=== PATIENT | female | born 1980 | race Caucasian/White ===

== ENCOUNTER → 2017-04-06 | Outpatient (CLI) | payer BC ==
[2017-04-06 12:48] LABS: BASOPHILS % (AUTO) 0.4 % (0.2-1.0); EOSINOPHILS # (AUTO) 0.1 x10^3/uL (0.0-0.2); HEMATOCRIT 41.3 % (36.0-47.0); HEMOGLOBIN 13.7 g/dL (12.0-16.0); LYMPHOCYTES # (AUTO) 2.8 X10^3/uL (1.3-2.9); LYMPHOCYTES % (AUTO) 39.2 % (21.0-51.0); MEAN CORPUSCULAR HEMOGLOBIN 27.2 pg (27.0-34.0); MEAN CORPUSCULAR HGB CONC 33.2 g/dL (33.0-35.0); MEAN CORPUSCULAR VOLUME 81.8 fL (80.0-100.0); MEAN PLATELET VOLUME 9.2 fL (7.4-11.0); MONOCYTES # (AUTO) 0.4 x10^3/uL (0.3-0.8); MONOCYTES % (AUTO) 5.5 % (0.0-13.0); NEUTROPHILS # (AUTO) 3.9 x10^3/uL (2.2-4.8); NEUTROPHILS % (AUTO) 53.9 % (42.0-75.0); PLATELET COUNT 277 X10^3/uL (150.0-450.0); RED BLOOD COUNT 5.05 X10^6/uL (3.5-5.4); RED CELL DISTRIBUTION WIDTH 13.1 % (11.6-16.5); WHITE BLOOD COUNT 7.2 X10^3/uL (3.6-10.0)
[2017-04-06 13:11] LABS: ALANINE AMINOTRANSFERASE 19 Units/L (12-78); ALBUMIN 3.6 g/dL (3.4-5.0); ALKALINE PHOSPHATASE 124 Units/L (46-116); ASPARTATE AMINO TRANSFERASE 15 Units/L (15-37); BLOOD UREA NITROGEN 9 mg/dL (7-18); CALCIUM 8.6 mg/dL (8.5-10.1); CARBON DIOXIDE 25.3 mmol/L (21-32); CHLORIDE 106 mmol/L (98-107); CHOL/HDL RATIO 3.8 (0.0-5.0); CHOLESTEROL 173 mg/dL (0-200); CREATININE 0.71 mg/dL (0.55-1.02); GLUCOSE 95 mg/dL (65-99); HDL CHOLESTEROL 45 mg/dL (40-60); SODIUM 141 mmol/L (136-145); TOTAL PROTEIN 7.6 g/dL (6.4-8.2); TRIGLYCERIDES 57 mg/dL (0-150); eGFR BLACK RACES > 60 (>60); eGFR NON BLACK RACES > 60 (>60)
== END ==
LOC: LAB 11:18
PROVIDERS: ATTEND Internal Medicine
DX: Z00.00 Encounter for general adult medical examination without abnormal findings (principal); I10 Essential (primary) hypertension; E55.9 Vitamin D deficiency, unspecified
CPT/HCPCS: 36415; 80053; 80061; 82306; 84443; 85025; 86140

== ENCOUNTER 2023-08-23 01:18 | Observation (INO) ==
[2023-08-23 01:40] VITALS: BMI 26.9
[2023-08-23 02:01] LABS: BASOPHILS # (AUTO) 0.1 X10^3/uL (0.0-0.1); BASOPHILS % (AUTO) 0.5 % (0.2-1.0); EOSINOPHILS % (AUTO) 0.2 % (0.9-2.9); HEMATOCRIT 39.5 % (36.0-47.0); HEMOGLOBIN 13.6 g/dL (12.0-16.0); LYMPHOCYTES # (AUTO) 1.8 X10^3/uL (1.3-2.9); LYMPHOCYTES % (AUTO) 15.6 % (21.0-51.0); MEAN CORPUSCULAR HGB CONC 34.4 g/dL (33.0-35.0); MEAN CORPUSCULAR VOLUME 84.2 fL (80.0-100.0); MEAN PLATELET VOLUME 8.5 fL (7.4-11.0); MONOCYTES # (AUTO) 0.6 x10^3/uL (0.3-0.8); MONOCYTES % (AUTO) 5.1 % (0.0-13.0); NEUTROPHILS % (AUTO) 78.6 % (42.0-75.0); PLATELET COUNT 254 X10^3/uL (150.0-450.0); RED BLOOD COUNT 4.69 X10^6/uL (3.5-5.4); RED CELL DISTRIBUTION WIDTH 12.8 % (11.6-16.5); WHITE BLOOD COUNT 11.4 X10^3/uL (3.6-10.0)
[2023-08-23 02:12] LABS: ALANINE AMINOTRANSFERASE 26 Units/L (12-78); ALBUMIN 3.7 g/dL (3.4-5.0); ALKALINE PHOSPHATASE 83 Units/L (46-116); AMYLASE 25 Units/L (25-115); ASPARTATE AMINO TRANSFERASE 32 Units/L (15-37); BLOOD UREA NITROGEN 8 mg/dL (7-18); CALCIUM 8.7 mg/dL (8.5-10.1); CARBON DIOXIDE 29.1 mmol/L (21-32); CHLORIDE 102 mmol/L (98-107); CREATININE 0.82 mg/dL (0.55-1.02); GLUCOSE 105 mg/dL (65-99); LIPASE 98 Units/L (73-393); SODIUM 136 mmol/L (136-145); TOTAL PROTEIN 7.5 g/dL (6.4-8.2); eGFR NON BLACK RACES > 60 (>60)
[2023-08-23 02:29] LABS: BILIRUBIN,URINE NEGATIVE (NEGATIVE); BLOOD/HEMOGLOBIN,URINE NEGATIVE (NEGATIVE); GLUCOSE, URINE NEGATIVE (NEGATIVE); KETONES,URINE 1+ (NEGATIVE); LEUKOCYTE ESTERASE ,URINE 1+ (NEGATIVE); NITRITES,URINE NEGATIVE (NEGATIVE); PROTEIN,URINE NEGATIVE (NEGATIVE); UROBILINOGEN,URINE NORMAL (NORMAL)
[2023-08-23 02:41] LABS: APPEARANCE,URINE HAZY (CLEAR); COLOR,URINE DARK YELLOW (YELLOW)
[2023-08-23 02:42] LABS: BACTERIA,URINE TRACE /HPF (NEGATIVE); RBC,URINE 0-2 /HPF (0-3); SQUAMOUS EPITHELIAL CELL,UR RARE /HPF (NEGATIVE)
[2023-08-23] MEDS ORDERED: NS 100 ML IV 100 ML ONE ×3 (03:02→12:25)
[2023-08-23] MEDS ORDERED: OMNIPAQUE 350 mg/mL 100 mL BTL 100 ML ONE (03:02)
--- NOTE | 2023-08-23 04:22 | CT ---
PROCEDURE: CT Abdomen and Pelvis with Contrast .HISTORY: Abdomen pain.TECHNIQUE: Axial images were performed through the abdomen and pelvis with the administration of IV contrast with multiplanar reformations . Oral contrast was not administered. Dose reduction techniques including Automated Exposure Control (AEC) and adjustment of mA and kV were utilized .COMPARISON: None .TECHNICAL QUALITY: Satisfactory .FINDINGS:Clear lung bases.Spleen upper limits of normal at 13 cm. Liver, adrenals, pancreas show no abnormality.Kidneys show no masses or obstruction.Prominent gallbladder wall could represent acute cholecystitis. No calcified stones and normal biliary tree.No ascites or pneumoperitoneum.Normal aorta.No lymphadenopathy.No bowel obstruction or inflammation and normal appendix.Pelvis shows no masses or free fluid in normal urinary bladder. Previous hysterectomy.No acute bony abnormality.IMPRESSION:1. Possible acute cholecystitis and ultrasound recommended.2. Spleen upper limits of normal.3. No other abnormality identified.Electronically signed by: Xavier Villegas (Aug 23, 2023 04:21:21)
[2023-08-23] MEDS ORDERED: ZOFRAN INJ 4 MG VIAL IVP ONE (04:30)
[2023-08-23] MEDS ORDERED: MORPHINE SULFATE INJ 4 MG IVP ONE (04:30)
--- NOTE | 2023-08-23 04:38 | ED.ABDFE ---
HPI Time Seen Time Seen by Provider: 08/23/23 02:03 PCP Primary Care Physician: Bry Álvarez/Jennifer Complaint Chief Complaint:: pt amb to triage with NAD noted, c/o abd pain that feels like indigestion and radiates around right side to back, reports this has happened 2 times before and eased after "making herself vomit" Self Treatment fo Chief Complaint: Flexeril COVID-19 Coronavirus risk:travel/contact w/high risk person: No Has patient experienced Coronavirus symptoms: No Reviewed Nurses Notes Review: Yes Source History Provided: Patient and Significant Other Mode of arrival Mode of Arrival: Ambulatory Timing Onset of Chief Complaint: 08/22/23 Came on: Gradually Duration Since Onset: Intermittent Location Location: RUQ Severity Severity: Moderate Quality Quality: Cramping and Sharp Context History of: None Modifying factors Worsening Factors: Food Associated signs and symptoms Associated Signs and Symptoms: Nausea PMH PMH Past Medical History: Yes Past Medical History: Hypertension Past Surgical History: Yes Surgical History: Hysterectomy Past Surgical History Comment: partial Family History History of Family Medical Conditions: No Social History Does patient currently use any type of tobacco product: No Have you used tobacco products in the last 12 months: No Type of Tobacco Use: None Alcohol Use: None Do you use any recreational Drugs:: No Lives With: Spouse Lives Where: Home Travel Risk Coronavirus risk:travel/contact w/high risk person: No Has patient experienced Coronavirus symptoms: No Infectious screening Have you traveled outside the country in the last 6 months?: No Isolation: Standard ROS Review of Systems Gastrointestinal/Abdominal: See HPI and Abdominal Pain PE Vital Signs Vitals: Vital Signs Temperature 97.8 F Pulse Rate 88 Respiratory Rate 20 Blood Pressure 139/89 O2 Sat by Pulse Oximetry 100 General Limitations: No Limitations General Appearance: Alert and In No Apparent Distress Head Head Exam: Normal Inspection, Atraumatic and Normocephalic Eyes Eye exam: Normal Appearance, PERRL and EOMI ENT ENT Exam: Normal Exam Neck Neck Exam: Normal Inspection Chest Chest Inspection: Normal Inspection Respiratory Respiratory Exam: Normal Lung Sounds Bilat Cardiovascular Cardiovascular Exam: Regular Rate Abdominal Exam Abdominal Exam: Normal Inspection Rectal Rectal Exam: Deferred Back Back Exam: Normal Inspection Extremeties Extremities Exam: Normal Inspection Neurologic Neurological Exam: Alert, Oriented X3 and CN II-XII Intact Psychiatric Psychiatric Exam: Normal Affect and Normal Mood Skin Skin Exam: Warm, Dry and Intact COURSE Treatment Treatment: CT, Labs, Zosyn, Morphine Reevaluation 1st: Improved ROR Labs Reviewed Laboratory Results Reviewed?: Yes 08/23/23 01:55 08/23/23 01:55 Laboratory: WBC 11.4 X10^3/uL (3.6-10.0) H 08/23/23 01:55 RBC 4.69 X10^6/uL (3.5-5.4) 08/23/23 01:55 Hgb 13.6 g/dL (12.0-16.0) 08/23/23 01:55 Hct 39.5 % (36.0-47.0) 08/23/23 01:55 MCV 84.2 fL (80.0-100.0) 08/23/23 01:55 MCH 29.0 pg (27.0-34.0) 08/23/23 01:55 MCHC 34.4 g/dL (33.0-35.0) 08/23/23 01:55 RDW 12.8 % (11.6-16.5) 08/23/23 01:55 Plt Count 254 X10^3/uL (150.0-450.0) 08/23/23 01:55 MPV 8.5 fL (7.4-11.0) 08/23/23 01:55 Neut % (Auto) 78.6 % (42.0-75.0) H 08/23/23 01:55 Lymph % (Auto) 15.6 % (21.0-51.0) L 08/23/23 01:55 [place] % (Auto) 5.1 % (0.0-13.0) 08/23/23 01:55 Eos % (Auto) 0.2 % (0.9-2.9) L 08/23/23 01:55 Baso % (Auto) 0.5 % (0.2-1.0) 08/23/23 01:55 Neut # (Auto) 9.0 x10^3/uL (2.2-4.8) H 08/23/23 01:55 Lymph # (Auto) 1.8 X10^3/uL (1.3-2.9) 08/23/23 01:55 [place] # (Auto) 0.6 x10^3/uL (0.3-0.8) 08/23/23 01:55 Eos # (Auto) 0.0 x10^3/uL (0.0-0.2) 08/23/23 01:55 Baso # (Auto) 0.1 X10^3/uL (0.0-0.1) 08/23/23 01:55 Absolute Nucleated RBC 0.0 /100WBC 08/23/23 01:55 Sodium 136 mmol/L (136-145) 08/23/23 01:55 Corrected Sodium TNP 08/23/23 01:55 Potassium 4.0 mmol/L (3.5-5.1) 08/23/23 01:55 Chloride 102 mmol/L (98-107) 08/23/23 01:55 Carbon Dioxide 29.1 mmol/L (21-32) 08/23/23 01:55 BUN 8 mg/dL (7-18) 08/23/23 01:55 Creatinine 0.82 mg/dL (0.55-1.02) 08/23/23 01:55 Est GFR (MDRD) Af Amer > 60 (>60) 08/23/23 01:55 Est GFR (MDRD) Non-Af > 60 (>60) 08/23/23 01:55 Glucose 105 mg/dL (65-99) H 08/23/23 01:55 Calcium 8.7 mg/dL (8.5-10.1) 08/23/23 01:55 Corrected Calcium TNP 08/23/23 01:55 Total Bilirubin 0.80 mg/dL (0.2-1.0) 08/23/23 01:55 AST 32 Units/L (15-37) 08/23/23 01:55 ALT 26 Units/L (12-78) 08/23/23 01:55 Alkaline Phosphatase 83 Units/L (46-116) 08/23/23 01:55 Total Protein 7.5 g/dL (6.4-8.2) 08/23/23 01:55 Albumin 3.7 g/dL (3.4-5.0) 08/23/23 01:55 Globulin 3.8 g/dL (2.5-4.5) 08/23/23 01:55 Albumin/Globulin Ratio 1.0 Ratio (1.1-2.1) L 08/23/23 01:55 Amylase 25 Units/L (25-115) 08/23/23 01:55 Lipase 98 Units/L (73-393) 08/23/23 01:55 Specimen Type Clean catch urine 08/23/23 02:15 Urine Color Dark yellow (YELLOW) 08/23/23 02:15 Urine Appearance Hazy (CLEAR) 08/23/23 02:15 Urine pH 8.0 (5.0 - 8.0) 08/23/23 02:15 Ur Specific [place] 1.015 (1.000-1.030) 08/23/23 02:15 Urine Protein Negative (NEGATIVE) 08/23/23 02:15 Urine Glucose (UA) Negative (NEGATIVE) 08/23/23 02:15 Urine Ketones 1+ (NEGATIVE) 08/23/23 02:15 Urine Blood Negative (NEGATIVE) 08/23/23 02:15 Urine Nitrite Negative (NEGATIVE) 08/23/23 02:15 Urine Bilirubin Negative (NEGATIVE) 08/23/23 02:15 Urine Urobilinogen Normal (NORMAL) 08/23/23 02:15 Ur Leukocyte Esterase 1+ (NEGATIVE) 08/23/23 02:15 Urine RBC 0-2 /HPF (0-3) 08/23/23 02:15 Urine WBC 0-2 /HPF (0-5) 08/23/23 02:15 Ur Squamous Epith Cells Rare /HPF (NEGATIVE) 08/23/23 02:15 Amorphous Sediment 2+ /HPF (NEGATIVE) 08/23/23 02:15 Urine Bacteria Trace /HPF (NEGATIVE) 08/23/23 02:15 Urine Mucus Few /HPF (NEGATIVE) 08/23/23 02:15 Ur Culture Indicated? No/not indicated 08/23/23 02:15 XRAY XRAY Interpreted by: Radiologist Opioid Opioid Risk Tool Age (Yo box if 16-45): Yes Total: 1 Total Score Risk Category: Low Risk Copyright: Anshu LARA predicting aberrant behaviors Discharge Plan Diagnosis Discharge Problem: Cholecystitis Discharge Plan Patient Disposition: 09 ADMITTED INPATIENT Condition: Stable Health Concerns: Post Hospitalization: new medications and changes needed to prevent readmission or further decline. Pt educated and given instructions on all concerns. Plan of Treatment: Continue with present treatment and follow up plan. Pt is to keep follow up appointment as instructed and take medications as ordered. Orders to Discharge Patient Discharge Orders: Discharge (Routine); Ordered 08/23/23 Ordered By: Babak Rossi Follow ups/Referrals Follow ups/Referrals: NFD,None [Primary Care Provider] - 3 days
[2023-08-23] MEDS ORDERED: NS 1,000 ML IV 1,000 ML ONE ×2 (04:44→12:26)
[2023-08-23] MEDS ORDERED: ZOSYN VIAL 4.5 GRAMS IV ONE (05:00)
[2023-08-23] MEDS: ZOSYN VIAL 4.5 GRAMS 4.5 G in NS 100 ML IV 100 ML IV SCH ×4 (05:07→21:41)
[2023-08-23] MEDS ORDERED: MORPHINE SULFATE INJ 4 MG ONE (05:09)
[2023-08-23] MEDS: NS 1,000 ML IV 1,000 ML IV SCH ×3 (05:09→21:42)
[2023-08-23] MEDS ORDERED: ZOFRAN INJ 4 MG VIAL ONE ×3 (05:10→15:17)
[2023-08-23] MEDS ORDERED: HIBICLENS WASH ONE (05:34)
[2023-08-23] MEDS ORDERED: HIBICLENS WASH EXT ONE (05:42)
--- NOTE | 2023-08-23 08:03 | EKG ---
Test Reason : pre op Blood Pressure : */* mmHG Vent. Rate : 75 BPM Atrial Rate : 75 BPM P-R Int : 106 ms QRS Dur : 78 ms QT Int : 398 ms P-R-T Axes : -3 17 23 degrees QTc Int : 444 ms Sinus rhythm with short SD Otherwise normal ECG No previous ECGs available Confirmed by Enrique Esquivel ([id number]) on 08/24/2023 9:17:03 AM Referred By: Confirmed By: Enrique Esquivel
--- NOTE | 2023-08-23 08:57 | RAD ---
EXAM:AP chestHISTORY:PreopCOMPARISON:None br.br.br spaces.IMPRESSION:Normal examination.THIS IS AN ELECTRONICALLY VERIFIED FINAL [id number]/23/2023 8:54 AM - Electronically signed by Amandeep Delgadillo MD
--- NOTE | 2023-08-23 11:37 | DR.H&P ---
H&P History & Physical for Day of: H&P Date: 08/23/23 Chief Complaint Chief Complaint: Right upper quadrant abdominal pain Allergies Allergies Allergy/AdvReac Type Severity Reaction Status Date / Time No Known Allergies Allergy Verified 08/23/23 05:23 History of Present Illness History of Present Illness: Otherwise healthy 42 year old female with multiple episodes of right upper quadrant pain with meals over the last several months. Most recent episode yesterday did not resolve after time. She was evaluated in the emergency room and CT scan consistent with a thickened wall gallbladder consistent with cholecystitis. 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 Family History Family Medical History: Diabetes Mellitus and Hypertension Social History Does patient currently use any type of tobacco product: No Have you used tobacco products in the last 12 months: No Type of Tobacco Use: None Alcohol Use: None Drug Use: None Labs 08/23/23 01:55 08/23/23 01:55 Labs: Laboratory WBC 11.4 X10^3/uL (3.6-10.0) H 08/23/23 01:55 RBC 4.69 X10^6/uL (3.5-5.4) 08/23/23 01:55 Hgb 13.6 g/dL (12.0-16.0) 08/23/23 01:55 Hct 39.5 % (36.0-47.0) 08/23/23 01:55 MCV 84.2 fL (80.0-100.0) 08/23/23 01:55 MCH 29.0 pg (27.0-34.0) 08/23/23 01:55 MCHC 34.4 g/dL (33.0-35.0) 08/23/23 01:55 RDW 12.8 % (11.6-16.5) 08/23/23 01:55 Plt Count 254 X10^3/uL (150.0-450.0) 08/23/23 01:55 MPV 8.5 fL (7.4-11.0) 08/23/23 01:55 Neut % (Auto) 78.6 % (42.0-75.0) H 08/23/23 01:55 Lymph % (Auto) 15.6 % (21.0-51.0) L 08/23/23 01:55 [place] % (Auto) 5.1 % (0.0-13.0) 08/23/23 01:55 Eos % (Auto) 0.2 % (0.9-2.9) L 08/23/23 01:55 Baso % (Auto) 0.5 % (0.2-1.0) 08/23/23 01:55 Neut # (Auto) 9.0 x10^3/uL (2.2-4.8) H 08/23/23 01:55 Lymph # (Auto) 1.8 X10^3/uL (1.3-2.9) 08/23/23 01:55 [place] # (Auto) 0.6 x10^3/uL (0.3-0.8) 08/23/23 01:55 Eos # (Auto) 0.0 x10^3/uL (0.0-0.2) 08/23/23 01:55 Baso # (Auto) 0.1 X10^3/uL (0.0-0.1) 08/23/23 01:55 Absolute Nucleated RBC 0.0 /100WBC 08/23/23 01:55 Sodium 136 mmol/L (136-145) 08/23/23 01:55 Corrected Sodium TNP 08/23/23 01:55 Potassium 4.0 mmol/L (3.5-5.1) 08/23/23 01:55 Chloride 102 mmol/L (98-107) 08/23/23 01:55 Carbon Dioxide 29.1 mmol/L (21-32) 08/23/23 01:55 BUN 8 mg/dL (7-18) 08/23/23 01:55 Creatinine 0.82 mg/dL (0.55-1.02) 08/23/23 01:55 Est GFR (MDRD) Af Amer > 60 (>60) 08/23/23 01:55 Est GFR (MDRD) Non-Af > 60 (>60) 08/23/23 01:55 Glucose 105 mg/dL (65-99) H 08/23/23 01:55 Calcium 8.7 mg/dL (8.5-10.1) 08/23/23 01:55 Corrected Calcium TNP 08/23/23 01:55 Total Bilirubin 0.80 mg/dL (0.2-1.0) 08/23/23 01:55 AST 32 Units/L (15-37) 08/23/23 01:55 ALT 26 Units/L (12-78) 08/23/23 01:55 Alkaline Phosphatase 83 Units/L (46-116) 08/23/23 01:55 Total Protein 7.5 g/dL (6.4-8.2) 08/23/23 01:55 Albumin 3.7 g/dL (3.4-5.0) 08/23/23 01:55 Globulin 3.8 g/dL (2.5-4.5) 08/23/23 01:55 Albumin/Globulin Ratio 1.0 Ratio (1.1-2.1) L 08/23/23 01:55 Amylase 25 Units/L (25-115) 08/23/23 01:55 Lipase 98 Units/L (73-393) 08/23/23 01:55 Specimen Type Clean catch urine 08/23/23 02:15 Urine Color Dark yellow (YELLOW) 08/23/23 02:15 Urine Appearance Hazy (CLEAR) 08/23/23 02:15 Urine pH 8.0 (5.0 - 8.0) 08/23/23 02:15 Ur Specific [place] 1.015 (1.000-1.030) 08/23/23 02:15 Urine Protein Negative (NEGATIVE) 08/23/23 02:15 Urine Glucose (UA) Negative (NEGATIVE) 08/23/23 02:15 Urine Ketones 1+ (NEGATIVE) 08/23/23 02:15 Urine Blood Negative (NEGATIVE) 08/23/23 02:15 Urine Nitrite Negative (NEGATIVE) 08/23/23 02:15 Urine Bilirubin Negative (NEGATIVE) 08/23/23 02:15 Urine Urobilinogen Normal (NORMAL) 08/23/23 02:15 Ur Leukocyte Esterase 1+ (NEGATIVE) 08/23/23 02:15 Urine RBC 0-2 /HPF (0-3) 08/23/23 02:15 Urine WBC 0-2 /HPF (0-5) 08/23/23 02:15 Ur Squamous Epith Cells Rare /HPF (NEGATIVE) 08/23/23 02:15 Amorphous Sediment 2+ /HPF (NEGATIVE) 08/23/23 02:15 Urine Bacteria Trace /HPF (NEGATIVE) 08/23/23 02:15 Urine Mucus Few /HPF (NEGATIVE) 08/23/23 02:15 Ur Culture Indicated? No/not indicated 08/23/23 02:15 Review of Systems Constitutional: See HPI Eyes: No Symptoms Reported ENT: No Symptoms Reported Respiratory: No Symptoms Reported Cardiovascular: No Symptoms Reported Gastrointestinal: See HPI Genitourinary: No Symptoms Reported Musculoskeletal: No Symptoms Reported Skin: No Symptoms Reported Neurological: No Symptoms Reported Physical Exam Vital Signs: Vital Signs Temperature 97.8 F Temperature 98.3 F Pulse Rate [Right Apical] 100 Pulse Rate [Right Apical] 105 Pulse Rate 83 Pulse Rate 72 Pulse Rate 78 Pulse Rate 87 Pulse Rate 74 Pulse Rate 76 Pulse Rate 76 Pulse Rate 79 Pulse Rate 85 Pulse Rate 76 Pulse Rate 93 Pulse Rate 93 Pulse Rate 86 Pulse Rate 76 Pulse Rate 76 Pulse Rate 83 Pulse Rate 82 Pulse Rate 91 Respiratory Rate 20 Respiratory Rate 20 Respiratory Rate 20 Respiratory Rate 18 Respiratory Rate 18 Blood Pressure [Right Arm] 140/86 Blood Pressure [Right Arm] 129/83 Blood Pressure 99/63 Blood Pressure 122/71 Blood Pressure 122/71 Blood Pressure 139/89 O2 Sat by Pulse Oximetry 100 O2 Sat by Pulse Oximetry 98 O2 Sat by Pulse Oximetry 99 O2 Sat by Pulse Oximetry 99 O2 Sat by Pulse Oximetry 96 O2 Sat by Pulse Oximetry 96 O2 Sat by Pulse Oximetry 97 O2 Sat by Pulse Oximetry 98 O2 Sat by Pulse Oximetry 100 O2 Sat by Pulse Oximetry 96 O2 Sat by Pulse Oximetry 97 O2 Sat by Pulse Oximetry 97 O2 Sat by Pulse Oximetry 100 O2 Sat by Pulse Oximetry 97 O2 Sat by Pulse Oximetry 97 O2 Sat by Pulse Oximetry 99 O2 Sat by Pulse Oximetry 99 O2 Sat by Pulse Oximetry 100 O2 Sat by Pulse Oximetry 99 O2 Sat by Pulse Oximetry 98 Oriented: Normal, Time, Person and Place Eyes: Normal Ear: Normal Nose: Normal Throat: Normal Respiratory: Clear Throughout Cardiovascular: Normal : Normal Auscultation: Bowel Sounds: Normal Palpation: Normal Tenderness: RUQ (moderate with rebound) Skin: Normal Musculoskeletal: Normal Psychiatric: Normal Mood Description: Calm Affect: Normal Speech Pattern: Clear Assessment/Plan (1) Cholecystitis: Status: Acute Plan: Patient started on IV antibiotics last night and her pain was controlled. Plan laparoscopic cholecystectomy today. Risk and benefits discussed including bleeding, infection and possibility of common bile duct injury. I explained to the patient I have had one injury in over 2,000 laparoscopic cholecystectomies . She and her understand and want me to proceed with laparoscopic cholecystectomy. Review H&P Reviewed: Yes Patient was examined?: Yes
[2023-08-23] MEDS ORDERED: BRIDION ONE (11:49)
[2023-08-23] MEDS ORDERED: LACRI-LUBE S.O.P. ONE (11:49)
[2023-08-23] MEDS ORDERED: ZEMURON 100 MG VIAL ONE (11:49)
[2023-08-23] MEDS ORDERED: DIPRIVAN VIAL 20 ML ONE (11:52)
[2023-08-23] MEDS ORDERED: ZOFRAN INJ 4 MG VIAL IVP PRN (12:07)
[2023-08-23] MEDS ORDERED: DILAUDID INJ IVP PRN (12:07)
[2023-08-23] MEDS ORDERED: BARHEMSYS INJ IVP PRN (12:07)
[2023-08-23] MEDS ORDERED: BENADRYL INJ 50 MG VIAL IVP PRN (12:07)
[2023-08-23] MEDS ORDERED: PEPCID 20 MG VIAL ONE (12:12)
[2023-08-23] MEDS ORDERED: DECADRON INJ ONE (12:12)
[2023-08-23] MEDS ORDERED: OFIRMEV IV 1000 MG VIAL 1,000 MG/100 ML VIAL IV ONE (12:13)
[2023-08-23] MEDS ORDERED: ROBINUL ONE (12:15)
[2023-08-23] MEDS ORDERED: KETAMINE 50 MG/5 ML-NACL SYRNG ONE (12:17)
[2023-08-23] MEDS ORDERED: FENTANYL VIAL INJ 100 mcg ONE (12:18)
[2023-08-23] MEDS ORDERED: VERSED ONE (12:18)
[2023-08-23] MEDS ORDERED: ANCEF VIAL 1 GRAM ONE (12:24)
[2023-08-23] MEDS ORDERED: LR 1,000 ML IV 1,000 ML IV ONE (12:24)
[2023-08-23] MEDS ORDERED: BACTROBAN TOPICAL OINT ONE (12:26)
[2023-08-23] MEDS ORDERED: XYLOCAINE 2 % (PLAIN) ONE (12:49)
[2023-08-23] MEDS ORDERED: PRECEDEX INJ VIAL IVP ONE (12:49)
[2023-08-23] MEDS ORDERED: NEO-SYNEPHRINE INJ ONE (13:13)
[2023-08-23] MEDS ORDERED: MARCAINE/EPINEPHRINE ONE (13:45)
[2023-08-23] MEDS ORDERED: MORPHINE SULFATE INJ 10 MG ONE (13:48)
--- NOTE | 2023-08-23 14:01 | OR.IMMED ---
IMMEDIATE POST-OP NOTE Immediate Post-Op Note Pre-Op Diagnosis: acute cholecystitis Post-Op Diagnosis: same Procedure: laparoscopic cholecystectomy Description of Procedure: dictated Surgeon/Public Information Coordinator: Tayler Findings: as above , difficult dissection Estimated Blood Loss: 150 cc Drains: Uriel Julian (#10) Progress Notes: Return to floor with drain in place labs in AM.
[2023-08-23] MEDS ORDERED: DILAUDID INJ ONE (15:17)
[2023-08-23] MEDS: DILAUDID INJ IVP PRN (15:24)
[2023-08-23] MEDS: ZOFRAN INJ 4 MG VIAL IVP PRN (15:25)
[2023-08-23] MEDS: PERCOCET TAB 5/325 MG PO PRN ×2 (17:12→21:41)
[2023-08-24] MEDS: DILAUDID INJ IVP PRN ×2 (04:45→15:32)
[2023-08-24] MEDS: ZOFRAN INJ 4 MG VIAL IVP PRN ×2 (04:58→15:32)
[2023-08-24] MEDS: ZOSYN VIAL 4.5 GRAMS 4.5 G in NS 100 ML IV 100 ML IV SCH ×2 (05:51→14:31)
[2023-08-24] MEDS: NS 1,000 ML IV 1,000 ML IV SCH (11:33)
[2023-08-24] MEDS: PERCOCET TAB 5/325 MG PO PRN (11:53)
[2023-08-24 12:54] LABS: BASOPHILS % (AUTO) 0.2 % (0.2-1.0); HEMATOCRIT 37.7 % (36.0-47.0); HEMOGLOBIN 12.9 g/dL (12.0-16.0); LYMPHOCYTES # (AUTO) 1.8 X10^3/uL (1.3-2.9); LYMPHOCYTES % (AUTO) 16.6 % (21.0-51.0); MEAN CORPUSCULAR HEMOGLOBIN 29.2 pg (27.0-34.0); MEAN CORPUSCULAR HGB CONC 34.2 g/dL (33.0-35.0); MEAN CORPUSCULAR VOLUME 85.5 fL (80.0-100.0); MEAN PLATELET VOLUME 8.6 fL (7.4-11.0); MONOCYTES # (AUTO) 0.8 x10^3/uL (0.3-0.8); MONOCYTES % (AUTO) 7.4 % (0.0-13.0); NEUTROPHILS # (AUTO) 8.2 x10^3/uL (2.2-4.8); NEUTROPHILS % (AUTO) 75.8 % (42.0-75.0); PLATELET COUNT 246 X10^3/uL (150.0-450.0); RED CELL DISTRIBUTION WIDTH 12.9 % (11.6-16.5); WHITE BLOOD COUNT 10.8 X10^3/uL (3.6-10.0)
[2023-08-24 13:06] LABS: ALANINE AMINOTRANSFERASE 473 Units/L (12-78); ALBUMIN 3.2 g/dL (3.4-5.0); ALKALINE PHOSPHATASE 216 Units/L (46-116); ASPARTATE AMINO TRANSFERASE 354 Units/L (15-37); BLOOD UREA NITROGEN 5 mg/dL (7-18); CALCIUM 8.3 mg/dL (8.5-10.1); CARBON DIOXIDE 28.5 mmol/L (21-32); CHLORIDE 104 mmol/L (98-107); COR CA(FOR HYPOALB) 8.9 mg/dL (8.5-10.1); CREATININE 0.81 mg/dL (0.55-1.02); GLUCOSE 97 mg/dL (65-99); POTASSIUM 4.4 mmol/L (3.5-5.1); SODIUM 138 mmol/L (136-145); TOTAL PROTEIN 6.6 g/dL (6.4-8.2); eGFR NON BLACK RACES > 60 (>60)
--- NOTE | 2023-08-24 18:31 | DR.OPNOTE ---
OP NOTE Pre-Op Diagnosis: Cholecystitis Post-Op Diagnosis: same Procedure Date Date Of Procedure: 08/23/23 Procedure: laparoscopic cholecystectomy Type of Anesthesia: General Anesthetic w/ETT Findings: edematous gallbladder. Difficult dissection in Calot's triangle. Cystic duct and cystic artery identified prior to clipping either ( critical view of safety) Specimen/Pathology: Gallbladder Type of Fluids Used:: Lactated Ringers EBL: 150cc Drains/Tubes Placed: Uriel Julian (# 10 Flat IONA placed in Zuleta's pouch) Complications:: none Needle/Sponge Count:: correct Disposition/Condition: Pt. tolerated procedure without difficulty. Extubated in the OR and taken to PACU in stable condition.
[2023-08-24] MEDS ORDERED: BRIDION ONE (19:29)
[2023-08-24] MEDS ORDERED: DIPRIVAN VIAL 20 ML ONE (19:29)
[2023-08-24] MEDS ORDERED: ZEMURON 100 MG VIAL ONE (19:29)
[2023-08-24] MEDS ORDERED: FENTANYL VIAL INJ 250 mcg ONE (19:29)
[2023-08-24] MEDS ORDERED: VERSED ONE (19:29)
[2023-08-24] MEDS ORDERED: QUELICIN (OR ANECTINE) ONE (19:29)
[2023-08-24] MEDS ORDERED: ZOFRAN INJ 4 MG VIAL ONE (19:30)
[2023-08-24] MEDS ORDERED: REGLAN INJ 10 MG VIAL ONE (19:30)
[2023-08-24] MEDS ORDERED: PEPCID 20 MG VIAL ONE (19:30)
[2023-08-24] MEDS ORDERED: BENADRYL INJ 50 MG VIAL IVP PRN (19:49)
[2023-08-24] MEDS ORDERED: REGLAN INJ 10 MG VIAL IVP PRN (19:49)
[2023-08-24] MEDS ORDERED: BARHEMSYS INJ IVP PRN (19:49)
[2023-08-24] MEDS ORDERED: ZOFRAN INJ 4 MG VIAL IVP PRN (19:49)
[2023-08-24] MEDS ORDERED: DILAUDID INJ IVP PRN (19:49)
--- NOTE | 2023-08-24 19:58 | NOTE.SOAP ---
Soap Note Note for Day of Date of Exam: 08/24/23 Subjective Data Subjective Data: Patient s/p laparoscopic cholecystectomy yesterday for cholecystitis. Critical view of safety observed and the cystic duct clipped proximally and distally and divided . When clip was attempted on proximal cystic artery it tore and several clips used to control bleeding. No additional structures divided . Labs were to done this AM but were not . When they resulted back the LFTS are elevated , T. bili =4.2, HJV=273, HYB=287, A,Phos= 216 Objective Data Temperature: 98.2 F Pulse Rate: 100 Respiratory Rate: 18 Blood Pressure: 127/68 O2 Sat by Pulse Oximetry: 97 Objective Data: Mild ledy- umbilical tenderness, IONA drain with sero sanguanous drainage. Hgb=12.9 Assessment Assessment: Doubt bile duct divided as no cuts were made after the cystic duct was divided and it was clearly the cystic duct as it entered the gallbladder. Worried about clip on CBD or right hepatic artery. Discussed with patient and family that I would ordinarily get either a HIDA scan or an MRCP. Dose of nuclear tracer cannot be available until Saturday and there is no one to do an MRCP. I doubt if she was transferred that these tests would be done before Saturday. T discussed laparoscopic exploration and cholangiogram. About 35 % chance of having to convert to open operation. They (3) all agree to proceed . Surgery delayed because labs were not done this AM and by the time they were available she had eaten lunch, requiring her to be NPO for at least 6 hours . Plan Plan: see assessment
[2023-08-24] MEDS ORDERED: LR 1,000 ML IV 1,000 ML IV ONE (19:59)
[2023-08-24] MEDS ORDERED: NS 100 ML IV 100 ML ONE (20:03)
[2023-08-24] MEDS ORDERED: ANCEF VIAL 1 GRAM ONE (20:03)
[2023-08-24] MEDS ORDERED: SUPRANE ONE (20:07)
[2023-08-24] MEDS ORDERED: VISIPAQUE ONE ×2 (20:38)
[2023-08-24] MEDS ORDERED: DILAUDID INJ ONE (20:57)
[2023-08-24] MEDS ORDERED: MARCAINE/EPINEPHRINE ONE (21:00)
--- NOTE | 2023-08-24 21:37 | OR.IMMED ---
IMMEDIATE POST-OP NOTE Immediate Post-Op Note Date of surgery/procedure: 08/24/23 Pre-Op Diagnosis: Elevated liver function tests following laparoscopic cholecystectomy Procedure: Exploratory laparoscopy, removal of clip tangentially across the hepatic artery Description of Procedure: dictated Surgeon/Mathematical Scientist: Taylre Findings: At the time of the original surgery the patient had identification of both cystic duct and cystic artery, the critical view of safety. After the cystic duct was clipped and divided attempt to place the clip on the proximal cystic artery caused it to tear and subsequent Clips applied. Post-procedure liver function tests elevated the next morning. I knew that no duct had been divided. On exploration there were three clips not attached to anything and one clip tangentially across the hepatic artery ( not completely occluding it) near where the clip had been put on the cystic artery. Common duct was intact. Estimated Blood Loss: < 50 cc Drains: Uriel Julian (flat # 10 IONA drain in Zuleta's pouch) Complications: none Progress Notes: Patient extubated and taken to PACU with plan to return to the floor. Continue IV fluids. Start a diet. Pain control and recheck lab work in the morning.
[2023-08-24] MEDS: CIPRO TAB 500 MG PO SCH (22:54)
[2023-08-25] MEDS: NS 1,000 ML IV 1,000 ML IV SCH ×2 (01:01→13:53)
[2023-08-25] MEDS: DILAUDID INJ IVP PRN (02:16)
[2023-08-25 05:33] LABS: BASOPHILS % (AUTO) 0.4 % (0.2-1.0); HEMATOCRIT 35.3 % (36.0-47.0); HEMOGLOBIN 12.2 g/dL (12.0-16.0); LYMPHOCYTES # (AUTO) 1.8 X10^3/uL (1.3-2.9); LYMPHOCYTES % (AUTO) 21.6 % (21.0-51.0); MEAN CORPUSCULAR HEMOGLOBIN 29.5 pg (27.0-34.0); MEAN CORPUSCULAR HGB CONC 34.6 g/dL (33.0-35.0); MEAN CORPUSCULAR VOLUME 85.1 fL (80.0-100.0); MEAN PLATELET VOLUME 8.9 fL (7.4-11.0); MONOCYTES # (AUTO) 0.7 x10^3/uL (0.3-0.8); MONOCYTES % (AUTO) 8.7 % (0.0-13.0); NEUTROPHILS # (AUTO) 5.7 x10^3/uL (2.2-4.8); NEUTROPHILS % (AUTO) 69.3 % (42.0-75.0); PLATELET COUNT 235 X10^3/uL (150.0-450.0); RED BLOOD COUNT 4.15 X10^6/uL (3.5-5.4); RED CELL DISTRIBUTION WIDTH 13.5 % (11.6-16.5); WHITE BLOOD COUNT 8.3 X10^3/uL (3.6-10.0)
[2023-08-25 05:48] LABS: ALANINE AMINOTRANSFERASE 352 Units/L (12-78); ALBUMIN 2.7 g/dL (3.4-5.0); ALKALINE PHOSPHATASE 229 Units/L (46-116); ASPARTATE AMINO TRANSFERASE 203 Units/L (15-37); BLOOD UREA NITROGEN 3 mg/dL (7-18); CALCIUM 7.8 mg/dL (8.5-10.1); CARBON DIOXIDE 28.4 mmol/L (21-32); CHLORIDE 105 mmol/L (98-107); COR CA(FOR HYPOALB) 8.8 mg/dL (8.5-10.1); CREATININE 0.66 mg/dL (0.55-1.02); GLUCOSE 82 mg/dL (65-99); SODIUM 137 mmol/L (136-145); TOTAL PROTEIN 5.9 g/dL (6.4-8.2); eGFR NON BLACK RACES > 60 (>60)
[2023-08-25] MEDS: PERCOCET TAB 5/325 MG PO PRN ×2 (07:03→13:01)
[2023-08-25] MEDS: CIPRO TAB 500 MG PO SCH (09:14)
[2023-08-25 12:29] VITALS: BP 130/80; PULSE 102; TEMP 98.4; O2SAT 95
[2023-08-25 13:02] VITALS: RESP 18
--- NOTE | 2023-08-25 13:39 | DR.OPNOTE ---
OP NOTE Pre-Op Diagnosis: s/P lap darci rise in LFTS,not able to get proper tests in timely fashion Post-Op Diagnosis: same, clip tangenially across right hepatic artery, not completely across Procedure Date Date Of Procedure: 08/24/23 Procedure: PROCEDURE : EXPLORATORY LAPAROASCOPY , REMOVAL OF CLIPS NARRATIVE: The patient was taken to the operative suite and placed in the supine position. General endotracheal anesthesia was induced. The abdomen was prepped and draped in sterile fashion. The patient received prophylactic antibiotics. Time out for the procedure obtained . The curvilinear incision below the umbilicus was opened by removing the sutures. The Maxine cannula was placed through this and the abdomen insufflated to 15 mm of Hg with carbon dioxide. A five-mm trocar was placed through the previous incision in the epigastrium and in the medial right subcostal previous trocar site. A new 5 mm incision was made beside the drain in the right lateral upper quadrant and a new 5mm trocar placed. The liver was elevated. The area was suctioned free after irrigation . I could see the clip over the cystic artery and the cystic duct. There were three Clips not attached to anything. They were all removed. There was one clip tangentially across right hepatic artery near where the cystic artery had been clipped. This was not completely across the right hepatic artery. This clip removed. The hepatic artery had excellent pulsatile flow along its length. The common duct was visualized. There was no injury to it. There was no clip over the common bile duct. The drain repositioned in Zuleta's pouch . All trocars removed. The fascia of the infraumbilical incision closed with interrupted 0 Vicryl sutures . All incisions than closed interrupted subcutaneous 3-0 Vicryl sutures and the skin closed with Steri strips . A total of 20 cc's of 0.5% Marcaine was distributed between all of the laparoscopic incisions. The patient extubated and taken to PACU in good condition. Type of Anesthesia: General Anesthetic w/ETT Findings: as above , see dictation of procedure Type of Fluids Used:: Lactated Ringers Total Amount of Fluid Infused:: 250 cc EBL: 50 cc Drains/Tubes Placed: Uriel Julian (flat # 10 IONA drain) Complications:: none Needle/Sponge Count:: correct Disposition/Condition: Pt. tolerated procedure without difficulty. Extubated in the OR and taken to PACU in stable condition.
--- NOTE | 2023-08-25 16:20 | W.DIS.FURT ---
Summary of Discharge Discharge Summary of Date Date of Exam: 08/25/23 Admission Date Date of Admission: 08/23/23 Admission Diagnosis Patient Problems (Updated 08/23/23 @ 04:38 by Babak Rossi) Cholecystitis (Acute) K81.9 Hospital Course: 42 year old female who presented to the emergency room with several week history of intermittent right upper quadrant pain. She was evaluated on the day of admi August [address] scan consistent with a thickened gallbladder wall and diagnosis of cholecystitis. She was admitted and placed on IV antibiotics. She went a laparoscopic cholecystectomy later in the day on the 23 of August. She did well however laboratory values the next day showed elevated bilirubin and liver function test. There was some bleeding at the time of the initial dissection. I was unable to obtain a HIDA scan or MRCP and returned her to the operating room and laparoscopic exploration done . There was one clip tangentially across the right hepatic artery near the clip placed on the cystic artery artery ,but not completely occluding it. This was removed. She has done well. Her liver function tests are returning to normal. Uriel Julian drain has been discontinued and she will be discharged home at this time on PO Cipro ,500 mg BID. She also will be given a prescription for Percocet, 5 mg tablets, one every six hours PRN pain. She will follow up with me in one week. Vital Signs: Vital Signs (72 hours) 08/24/23 19:51 08/23/23 01:30 08/23/23 05:23 Temperature 98.2 F 97.8 F Pulse Rate 100 H 88 Pulse Rate [Right Apical] 105 H Respiratory Rate 18 20 18 Blood Pressure 127/68 139/89 Blood Pressure [Left Arm] Blood Pressure [Right Arm] 129/83 O2 Sat by Pulse Oximetry 97 100 98 Oxygen Delivery Method Room Air Room Air 08/23/23 05:15 08/23/23 05:58 08/23/23 06:00 Temperature 98.3 F Pulse Rate 91 H Pulse Rate [Right Apical] 100 H Respiratory Rate 18 20 20 Blood Pressure 139/89 Blood Pressure [Left Arm] Blood Pressure [Right Arm] 140/86 O2 Sat by Pulse Oximetry 99 100 Oxygen Delivery Method Room Air Room Air 08/23/23 08:00 08/23/23 06:45 08/23/23 07:00 Temperature 97.8 F Pulse Rate 93 H 82 83 Pulse Rate [Right Apical] Respiratory Rate 20 Blood Pressure 122/71 Blood Pressure [Left Arm] Blood Pressure [Right Arm] O2 Sat by Pulse Oximetry 97 99 99 Oxygen Delivery Method Room Air 08/23/23 07:15 08/23/23 07:30 08/23/23 07:45 Temperature Pulse Rate 76 76 86 Pulse Rate [Right Apical] Respiratory Rate Blood Pressure Blood Pressure [Left Arm] Blood Pressure [Right Arm] O2 Sat by Pulse Oximetry 97 97 100 Oxygen Delivery Method 08/23/23 08:00 08/23/23 08:00 08/23/23 08:15 Temperature Pulse Rate 93 H 76 Pulse Rate [Right Apical] Respiratory Rate Blood Pressure 122/71 Blood Pressure [Left Arm] Blood Pressure [Right Arm] O2 Sat by Pulse Oximetry 97 96 Oxygen Delivery Method 08/23/23 08:30 08/23/23 08:45 08/23/23 09:00 Temperature Pulse Rate 85 79 76 Pulse Rate [Right Apical] Respiratory Rate Blood Pressure Blood Pressure [Left Arm] Blood Pressure [Right Arm] O2 Sat by Pulse Oximetry 100 98 97 Oxygen Delivery Method 08/23/23 09:15 08/23/23 09:30 08/23/23 09:45 Temperature Pulse Rate 76 74 87 Pulse Rate [Right Apical] Respiratory Rate Blood Pressure Blood Pressure [Left Arm] Blood Pressure [Right Arm] O2 Sat by Pulse Oximetry 96 96 99 Oxygen Delivery Method 08/23/23 10:00 08/23/23 10:00 08/23/23 10:15 Temperature Pulse Rate 78 72 Pulse Rate [Right Apical] Respiratory Rate Blood Pressure 99/63 Blood Pressure [Left Arm] Blood Pressure [Right Arm] O2 Sat by Pulse Oximetry 99 98 Oxygen Delivery Method 08/23/23 10:30 08/23/23 12:42 08/23/23 13:48 Temperature 97.6 F Pulse Rate 83 83 Pulse Rate [Right Apical] Respiratory Rate 18 16 Blood Pressure 115/72 Blood Pressure [Left Arm] Blood Pressure [Right Arm] O2 Sat by Pulse Oximetry 100 99 Oxygen Delivery Method Room Air 08/23/23 10:45 08/23/23 11:00 08/23/23 11:15 Temperature Pulse Rate 84 87 76 Pulse Rate [Right Apical] Respiratory Rate Blood Pressure Blood Pressure [Left Arm] Blood Pressure [Right Arm] O2 Sat by Pulse Oximetry 100 99 99 Oxygen Delivery Method 08/23/23 11:30 08/23/23 11:45 08/23/23 12:00 Temperature Pulse Rate 73 77 Pulse Rate [Right Apical] Respiratory Rate Blood Pressure 100/62 Blood Pressure [Left Arm] Blood Pressure [Right Arm] O2 Sat by Pulse Oximetry 97 99 Oxygen Delivery Method 08/23/23 12:00 08/23/23 12:15 08/23/23 13:58 Temperature 98.4 F 97.1 F L Pulse Rate 77 77 87 Pulse Rate [Right Apical] Respiratory Rate 14 Blood Pressure 117/66 Blood Pressure [Left Arm] Blood Pressure [Right Arm] O2 Sat by Pulse Oximetry 99 100 100 Oxygen Delivery Method Aerosol Face Tent 08/23/23 14:03 08/23/23 14:18 08/23/23 14:23 Temperature Pulse Rate 77 77 97 H Pulse Rate [Right Apical] Respiratory Rate 14 14 16 Blood Pressure 112/64 115/63 110/63 Blood Pressure [Left Arm] Blood Pressure [Right Arm] O2 Sat by Pulse Oximetry 100 100 96 Oxygen Delivery Method Aerosol Face Tent Aerosol Face Tent Room Air 08/23/23 14:28 08/23/23 14:08 08/23/23 14:13 Temperature Pulse Rate 78 84 79 Pulse Rate [Right Apical] Respiratory Rate 16 14 14 Blood Pressure 122/72 111/63 116/64 Blood Pressure [Left Arm] Blood Pressure [Right Arm] O2 Sat by Pulse Oximetry 96 100 100 Oxygen Delivery Method Room Air Aerosol Face Tent Aerosol Face Tent 08/23/23 15:24 08/23/23 14:40 08/23/23 14:41 Temperature 97.9 F Pulse Rate 74 72 Pulse Rate [Right Apical] Respiratory Rate 20 Blood Pressure Blood Pressure [Left Arm] Blood Pressure [Right Arm] O2 Sat by Pulse Oximetry 96 96 Oxygen Delivery Method 08/23/23 14:41 08/23/23 14:45 08/23/23 14:45 Temperature Pulse Rate 83 Pulse Rate [Right Apical] Respiratory Rate Blood Pressure 116/76 118/78 Blood Pressure [Left Arm] Blood Pressure [Right Arm] O2 Sat by Pulse Oximetry 96 Oxygen Delivery Method 08/23/23 15:00 08/23/23 15:00 08/23/23 15:15 Temperature Pulse Rate 77 94 H Pulse Rate [Right Apical] Respiratory Rate Blood Pressure 107/68 Blood Pressure [Left Arm] Blood Pressure [Right Arm] O2 Sat by Pulse Oximetry 95 98 Oxygen Delivery Method 08/23/23 15:16 08/23/23 15:16 08/23/23 15:30 Temperature Pulse Rate 76 75 Pulse Rate [Right Apical] Respiratory Rate Blood Pressure 102/59 Blood Pressure [Left Arm] Blood Pressure [Right Arm] O2 Sat by Pulse Oximetry 98 93 L Oxygen Delivery Method 08/23/23 15:30 08/23/23 15:45 08/23/23 15:45 Temperature Pulse Rate 75 Pulse Rate [Right Apical] Respiratory Rate Blood Pressure 114/60 102/58 Blood Pressure [Left Arm] Blood Pressure [Right Arm] O2 Sat by Pulse Oximetry 93 L Oxygen Delivery Method 08/23/23 16:00 08/23/23 16:00 08/23/23 15:54 Temperature Pulse Rate 81 Pulse Rate [Right Apical] Respiratory Rate 20 Blood Pressure 110/65 Blood Pressure [Left Arm] Blood Pressure [Right Arm] O2 Sat by Pulse Oximetry 94 L Oxygen Delivery Method 08/23/23 17:12 08/23/23 18:12 08/23/23 18:45 Temperature 98.3 F Pulse Rate 85 Pulse Rate [Right Apical] Respiratory Rate 20 20 19 Blood Pressure 114/68 Blood Pressure [Left Arm] Blood Pressure [Right Arm] O2 Sat by Pulse Oximetry 96 Oxygen Delivery Method Room Air 08/23/23 19:45 08/23/23 21:41 08/23/23 20:00 Temperature 97.9 F Pulse Rate 99 H 86 Pulse Rate [Right Apical] Respiratory Rate 17 16 17 Blood Pressure 118/60 129/82 Blood Pressure [Left Arm] Blood Pressure [Right Arm] O2 Sat by Pulse Oximetry 97 97 Oxygen Delivery Method Room Air Room Air 08/24/23 00:00 08/23/23 22:41 08/24/23 04:00 Temperature 98.2 F 98.1 F Pulse Rate 85 95 H Pulse Rate [Right Apical] Respiratory Rate 11 L 11 L 11 L Blood Pressure 140/75 119/75 Blood Pressure [Left Arm] Blood Pressure [Right Arm] O2 Sat by Pulse Oximetry 97 98 Oxygen Delivery Method Room Air Room Air 08/24/23 04:45 08/24/23 05:15 08/24/23 08:00 Temperature 97.7 F Pulse Rate 78 Pulse Rate [Right Apical] Respiratory Rate 23 23 22 Blood Pressure 135/83 Blood Pressure [Left Arm] Blood Pressure [Right Arm] O2 Sat by Pulse Oximetry 99 Oxygen Delivery Method Room Air 08/24/23 11:53 08/24/23 12:00 08/24/23 12:53 Temperature 98.5 F Pulse Rate 86 Pulse Rate [Right Apical] Respiratory Rate 20 20 20 Blood Pressure 125/69 Blood Pressure [Left Arm] Blood Pressure [Right Arm] O2 Sat by Pulse Oximetry 98 Oxygen Delivery Method Room Air 08/24/23 15:32 08/24/23 16:00 08/24/23 16:02 Temperature 98.2 F Pulse Rate 100 H Pulse Rate [Right Apical] Respiratory Rate 22 18 20 Blood Pressure 127/68 Blood Pressure [Left Arm] Blood Pressure [Right Arm] O2 Sat by Pulse Oximetry 97 Oxygen Delivery Method Room Air 08/24/23 19:45 08/24/23 20:57 08/24/23 21:23 Temperature 97.8 F 97.3 F L Pulse Rate 97 H 120 H Pulse Rate [Right Apical] Respiratory Rate 12 14 16 Blood Pressure 147/90 142/90 Blood Pressure [Left Arm] Blood Pressure [Right Arm] O2 Sat by Pulse Oximetry 97 99 Oxygen Delivery Method Room Air Nasal Cannula 08/24/23 21:28 08/24/23 21:33 08/24/23 21:38 Temperature Pulse Rate 122 H 125 H 120 H Pulse Rate [Right Apical] Respiratory Rate 16 16 18 Blood Pressure 151/92 141/91 132/87 Blood Pressure [Left Arm] Blood Pressure [Right Arm] O2 Sat by Pulse Oximetry 98 98 98 Oxygen Delivery Method Nasal Cannula Nasal Cannula Nasal Cannula 08/24/23 21:43 08/24/23 21:48 08/24/23 21:53 Temperature Pulse Rate 115 H 109 H 111 H Pulse Rate [Right Apical] Respiratory Rate 18 18 18 Blood Pressure 130/84 127/78 127/76 Blood Pressure [Left Arm] Blood Pressure [Right Arm] O2 Sat by Pulse Oximetry 98 98 98 Oxygen Delivery Method Nasal Cannula Nasal Cannula Nasal Cannula 08/24/23 22:05 08/24/23 22:20 08/24/23 22:35 Temperature 98.5 F 97.8 F 97.9 F Pulse Rate Pulse Rate [Right Apical] 118 H 108 H 107 H Respiratory Rate 20 18 18 Blood Pressure Blood Pressure [Left Arm] 125/74 120/70 125/87 Blood Pressure [Right Arm] O2 Sat by Pulse Oximetry 97 97 98 Oxygen Delivery Method 08/24/23 22:50 08/24/23 23:05 08/25/23 00:05 Temperature 98.1 F 98.1 F 98.5 F Pulse Rate 101 H Pulse Rate [Right Apical] 112 H 103 H Respiratory Rate 19 20 19 Blood Pressure 121/77 Blood Pressure [Left Arm] 121/79 125/76 Blood Pressure [Right Arm] O2 Sat by Pulse Oximetry 96 98 97 Oxygen Delivery Method Room Air 08/25/23 00:05 08/25/23 02:16 08/25/23 01:05 Temperature 98.5 F 98.4 F Pulse Rate 97 H Pulse Rate [Right Apical] 101 H Respiratory Rate 19 19 18 Blood Pressure 127/76 Blood Pressure [Left Arm] 121/77 Blood Pressure [Right Arm] O2 Sat by Pulse Oximetry 97 97 Oxygen Delivery Method Room Air 08/25/23 02:05 08/25/23 03:05 08/25/23 04:00 Temperature 98.7 F 98.8 F 98.8 F Pulse Rate 102 H 104 H 104 H Pulse Rate [Right Apical] Respiratory Rate 19 20 20 Blood Pressure 131/76 117/66 117/66 Blood Pressure [Left Arm] Blood Pressure [Right Arm] O2 Sat by Pulse Oximetry 98 96 96 Oxygen Delivery Method Room Air Room Air Room Air 08/25/23 02:46 08/25/23 07:03 08/25/23 07:00 Temperature Pulse Rate Pulse Rate [Right Apical] Respiratory Rate 19 18 Blood Pressure Blood Pressure [Left Arm] Blood Pressure [Right Arm] O2 Sat by Pulse Oximetry Oxygen Delivery Method Room Air 08/25/23 08:00 08/25/23 08:03 08/25/23 12:00 Temperature 98.3 F 98.4 F Pulse Rate 107 H Pulse Rate [Right Apical] 102 H Respiratory Rate 20 18 20 Blood Pressure 129/68 Blood Pressure [Left Arm] 130/80 Blood Pressure [Right Arm] O2 Sat by Pulse Oximetry 96 95 Oxygen Delivery Method Room Air Room Air 08/25/23 13:01 08/25/23 14:01 Temperature Pulse Rate Pulse Rate [Right Apical] Respiratory Rate 18 18 Blood Pressure Blood Pressure [Left Arm] Blood Pressure [Right Arm] O2 Sat by Pulse Oximetry Oxygen Delivery Method Labs: Laboratory Last Values WBC 8.3 X10^3/uL (3.6-10.0) 08/25/23 05:05 RBC 4.15 X10^6/uL (3.5-5.4) 08/25/23 05:05 Hgb 12.2 g/dL (12.0-16.0) 08/25/23 05:05 Hct 35.3 % (36.0-47.0) L 08/25/23 05:05 MCV 85.1 fL (80.0-100.0) 08/25/23 05:05 MCH 29.5 pg (27.0-34.0) 08/25/23 05:05 MCHC 34.6 g/dL (33.0-35.0) 08/25/23 05:05 RDW 13.5 % (11.6-16.5) 08/25/23 05:05 Plt Count 235 X10^3/uL (150.0-450.0) 08/25/23 05:05 MPV 8.9 fL (7.4-11.0) 08/25/23 05:05 Neut % (Auto) 69.3 % (42.0-75.0) 08/25/23 05:05 Lymph % (Auto) 21.6 % (21.0-51.0) 08/25/23 05:05 [place] % (Auto) 8.7 % (0.0-13.0) 08/25/23 05:05 Eos % (Auto) 0.0 % (0.9-2.9) L 08/25/23 05:05 Baso % (Auto) 0.4 % (0.2-1.0) 08/25/23 05:05 Neut # (Auto) 5.7 x10^3/uL (2.2-4.8) H 08/25/23 05:05 Lymph # (Auto) 1.8 X10^3/uL (1.3-2.9) 08/25/23 05:05 [place] # (Auto) 0.7 x10^3/uL (0.3-0.8) 08/25/23 05:05 Eos # (Auto) 0.0 x10^3/uL (0.0-0.2) 08/25/23 05:05 Baso # (Auto) 0.0 X10^3/uL (0.0-0.1) 08/25/23 05:05 Absolute Nucleated RBC 0.0 /100WBC 08/25/23 05:05 Sodium 137 mmol/L (136-145) 08/25/23 05:05 Corrected Sodium TNP 08/25/23 05:05 Potassium 4.0 mmol/L (3.5-5.1) 08/25/23 05:05 Chloride 105 mmol/L (98-107) 08/25/23 05:05 Carbon Dioxide 28.4 mmol/L (21-32) 08/25/23 05:05 BUN 3 mg/dL (7-18) L 08/25/23 05:05 Creatinine 0.66 mg/dL (0.55-1.02) 08/25/23 05:05 Est GFR (MDRD) Af Amer > 60 (>60) 08/25/23 05:05 Est GFR (MDRD) Non-Af > 60 (>60) 08/25/23 05:05 Glucose 82 mg/dL (65-99) 08/25/23 05:05 Calcium 7.8 mg/dL (8.5-10.1) L 08/25/23 05:05 Corrected Calcium 8.8 mg/dL (8.5-10.1) 08/25/23 05:05 Total Bilirubin 1.50 mg/dL (0.2-1.0) H 08/25/23 05:05 AST 203 Units/L (15-37) H 08/25/23 05:05 ALT 352 Units/L (12-78) H 08/25/23 05:05 Alkaline Phosphatase 229 Units/L (46-116) H 08/25/23 05:05 Total Protein 5.9 g/dL (6.4-8.2) L 08/25/23 05:05 Albumin 2.7 g/dL (3.4-5.0) L 08/25/23 05:05 Globulin 3.2 g/dL (2.5-4.5) 08/25/23 05:05 Albumin/Globulin Ratio 0.8 Ratio (1.1-2.1) L 08/25/23 05:05 Amylase 25 Units/L (25-115) 08/23/23 01:55 Lipase 98 Units/L (73-393) 08/23/23 01:55 Specimen Type Clean catch urine 08/23/23 02:15 Urine Color Dark yellow (YELLOW) 08/23/23 02:15 Urine Appearance Hazy (CLEAR) 08/23/23 02:15 Urine pH 8.0 (5.0 - 8.0) 08/23/23 02:15 Ur Specific [place] 1.015 (1.000-1.030) 08/23/23 02:15 Urine Protein Negative (NEGATIVE) 08/23/23 02:15 Urine Glucose (UA) Negative (NEGATIVE) 08/23/23 02:15 Urine Ketones 1+ (NEGATIVE) 08/23/23 02:15 Urine Blood Negative (NEGATIVE) 08/23/23 02:15 Urine Nitrite Negative (NEGATIVE) 08/23/23 02:15 Urine Bilirubin Negative (NEGATIVE) 08/23/23 02:15 Urine Urobilinogen Normal (NORMAL) 08/23/23 02:15 Ur Leukocyte Esterase 1+ (NEGATIVE) 08/23/23 02:15 Urine RBC 0-2 /HPF (0-3) 08/23/23 02:15 Urine WBC 0-2 /HPF (0-5) 08/23/23 02:15 Ur Squamous Epith Cells Rare /HPF (NEGATIVE) 08/23/23 02:15 Amorphous Sediment 2+ /HPF (NEGATIVE) 08/23/23 02:15 Urine Bacteria Trace /HPF (NEGATIVE) 08/23/23 02:15 Urine Mucus Few /HPF (NEGATIVE) 08/23/23 02:15 Ur Culture Indicated? No/not indicated 08/23/23 02:15 Blood Type O POSITIVE 08/24/23 19:40 Antibody Screen Negative 08/24/23 19:40 Crossmatch See Detail 08/24/23 19:40 Reason For Visit: ACUTE CHOLECYSTITIS Discharge Date Discharge Date: 08/25/23 Discharge Diagnosis All Active Problems (Updated 08/23/23 @ 04:38 by Babak Rossi) Cholecystitis (Acute) Plan of Treatment: Continue with present treatment and follow up plan. Pt is to keep follow up appointment as instructed and take medications as ordered. Discharge Medications Discharge Medications: No Known Allergies Allergy (Verified 08/23/23 05:23) CONTINUE taking the following medications Cipro 500 mg po BID x 7 days Percocet 5 mg , 1po q 6 Hr PRN pain, #20 cyclobenzaprine 10 mg tablet 10 mg PO QPM 08/23/23 [History] dextroamphetamine-amphetamine ER 15 mg 24hr capsule,extend release 1 cap PO QAM 08/23/23 [History] dextroamphetamine-amphetamine ER 15 mg 24hr capsule,extend release 1 cap PO QAM 08/23/23 [History] losartan 50 mg tablet 50 mg PO QDAY 08/23/23 [History] nabumetone 500 mg tablet 500 mg PO BID 08/23/23 [History] promethazine-DM 6.25 mg-15 mg/5 mL oral syrup 5 ml PO QPM 08/23/23 [History] valacyclovir 1 gram tablet 1 mg PO ONCE 08/23/23 [History] valacyclovir 1 gram tablet 4,000 mg PO ONCE 08/23/23 [History] Discharge Disposition Assessment: see hospital course Discharge Plan Discharge Plan Hospital Course: 42 year old female who presented to the emergency room with several week history of intermittent right upper quadrant pain. She was evaluated on the day of admission, August [address] scan consistent with a thickened gallbladder wall and diagnosis of cholecystitis. She was admitted and placed on IV antibiotics. She went a laparoscopic cholecystectomy later in the day on the 23 of August. She did well however laboratory values the next day showed elevated bilirubin and liver function test. There was some bleeding at the time of the initial dissection. I was unable to obtain a HIDA scan or MRCP and returned her to the operating room and laparoscopic exploration done . There was one clip tangentially across the right hepatic artery near the clip placed on the cystic artery artery ,but not completely occluding it. This was removed. She has done well. Her liver function tests are returning to normal. Uriel Julian drain has been discontinued and she will be discharged home at this time on PO Cipro ,500 mg BID. She also will be given a prescription for Percocet, 5 mg tablets, one every six hours PRN pain. She will follow up with me in one week. Patient Disposition: 01 HOME, SELF-CARE Condition: Stable Health Concerns: Post Hospitalization: new medications and changes needed to prevent readmission or further decline. Pt educated and given instructions on all concerns. Care Plan Goals: see hospital course. May shower tommorow. Encourage ambulation. May shower tomorrow. Plan of Treatment: Continue with present treatment and follow up plan. Pt is to keep follow up appointment as instructed and take medications as ordered. Assessment: see hospital course Prescription drug monitoring program results: PDMP reviewed and no concerns identified Prescriptions: New ciprofloxacin HCl [Cipro] 500 mg tablet 500 mg PO BID MDD 2 Qty: 14 0RF oxycodone-acetaminophen [Percocet] 5-325 mg tablet 1 tab PO Q6H MDD 4 PRN (Reason: pain) Qty: 20 0RF Continued losartan 50 mg tablet 50 mg PO QDAY cyclobenzaprine 10 mg tablet 10 mg PO QPM promethazine-DM 6.25-15 mg/5 mL syrup 5 ml PO QPM valacyclovir 1 gram tablet 4,000 mg PO ONCE valacyclovir 1 gram tablet 1 mg PO ONCE nabumetone 500 mg tablet 500 mg PO BID dextroamphetamine-amphetamine 15 mg capsule,extended release 24hr 1 cap PO QAM dextroamphetamine-amphetamine 15 mg capsule,extended release 24hr 1 cap PO QAM Discontinued azithromycin 250 mg tablet 250 mg PO DIRECTED Orders to Discharge Patient Discharge Orders: Discharge (Routine); Ordered 08/25/23 Ordered By: Justin Lester Follow ups/Referrals Follow ups/Referrals: [facility],None [Primary Care Provider] - 3 days Instructions Instructions: Laparoscopic Cholecystectomy, Care After Stand Alone Forms: Excuse From Work or School, Post Hospital Follow Up Care
== END 2023-08-25 16:35 | disposition home or self-care (01) ==
LOC: ICU 01:22 → ER 01:22 → ICU 05:25 → MED/SURG 08-24 12:03
PROVIDERS: ADMIT Surgery; ATTEND Surgery
PROC: DIAGLAP (2023-08-24 20:15)
DX: K81.0 Acute cholecystitis; I10 Essential (primary) hypertension; R10.11 Right upper quadrant pain